=== PATIENT | female | born 1965 ===

== ENCOUNTER → 2017-04-20 | Outpatient (CLI) | payer BC | END | disposition home or self-care (01) | LOC: C.PATHSPEC 11:06 | PROVIDERS: ATTEND Dentist Endodontics | DX: K08.9 Disorder of teeth and supporting structures, unspecified (principal) ==

== ENCOUNTER 2019-01-13 03:51 | Inpatient (IN) ==
[2019-01-13] MEDS ORDERED: ONDANSETRON INJ 2 MG/ML 2 ML VIAL IV STA (04:13)
[2019-01-13] MEDS ORDERED: VANCOMYCIN HCL 2,250 MG in SODIUM CHLORIDE 0.9% 500 ML IV ONE (04:13)
[2019-01-13] MEDS ORDERED: cefTRIAXone SODIUM 2,000 MG in DEXTROSE 5% 50 ML IV STA (04:13)
[2019-01-13] MEDS ORDERED: VANCOMYCIN CONSULT ACTIVE PRN ×2 (04:13→06:10)
[2019-01-13] MEDS ORDERED: SODIUM CHLORIDE 0.9% 1000ML 1,000 ML IV SCH (04:15)
[2019-01-13] MEDS: MoRPHine SULFATE 4 MG/ML 1 ML CARP\\VIAL IV PRN ×2 (04:31→21:50)
[2019-01-13 04:32] LABS: Basophils # (auto) 0.04 K/uL (0-0.2); Basophils % (auto) 0.3 %; Eosinophils # (auto) 0.36 K/uL (0-0.5); Eosinophils % (auto) 2.4 %; Hematocrit (blood only) 39.6 % (37-47); Hemoglobin 13.2 g/dL (12.0-16.0); Immature Granulocytes # (auto) 0.03 K/uL (0.00-0.02); Immature Granulocytes % (auto) 0.2 %; Lymphocytes # (auto) 2.25 K/uL (1.2-3.4); Mean Corpuscular Hgb Conc 33.3 g/dL (32-36); Mean Corpuscular Volume 87.8 fL (80-100); Mean Platelet Volume 10.1 fL (7.4-10.4); Monocytes # (auto) 0.98 K/uL (0.11-0.59); Monocytes % (auto) 6.5 %; Neutrophils # (auto) 11.37 K/uL (1.4-6.5); Neutrophils % (auto) 75.6 %; Platelet Count 222 K/uL (130-400); RDW Standard Deviation 41.7 fL (36.4-46.3); Red Blood Count 4.51 M/uL (4.2-5.4); White Blood Count 15.03 K/uL (4.8-10.8)
[2019-01-13 04:50] LABS: Albumin Level 3.3 gm/dl (3.4-5.0); BUN Creatinine Ratio 21.3 (10-20); Calcium 8.6 mg/dl (8.5-10.1); Creatinine Clr Calc Pharmacy 109.1 ml/min; Est GFR (African American) 106.2; Est GFR (Non-African American) 91.6; Potassium 3.5 mmol/L (3.5-5.1)
[2019-01-13 04:52] LABS: Albumin Globulin Ratio 0.9 (0.9-2); Bilirubin,Total 0.4 mg/dl (0.2-1); Globulin 3.7 gm/dl (2.5-4.0)
--- NOTE | 2019-01-13 05:17 | History & Physical Report ---
Date of Service 53-year-old female with a past medical history of obesity with a BMI of 38 presents the emergency room after failed outpatient treatment for a labial abscess that was I&D in the ER. She was here on the and had an I&D done in the emergency room. Today she comes back for a wound check in her right labial area is roll slicing machine tender with erythema in the left medial thigh. She was also found to have a white count of 15,000, she was started on vancomycin and Rocephin in the emergency room. Past medical historyobesity Past surgical historynone Family historynoncontributory Social historydenies tobacco drugs or alcohol January 13, 2019 Assessment & Plan (1) Abscess of right genital labia: (2) Cellulitis of labia: (3) Leukocytosis: I have consulted BUILDING MAINTENANCE TECHNICIAN for evaluation and possible I&D of the abscess. She said when she was I&D in the emergency room on Thursday that not much pus was expressed out of the boil, the ER doctor commented that he thought there would been a lot more pus was expressed. In concert with the emergency room I have resumed Rocephin and vancomycin and also will get input from infectious disease. She will be under observation status likely to be here less than 2 minutes likely be discharged later today. ROS-No Headache, No Visual Changes, No Nausea, No Vomiting, No Fever, No Chills, No Neck Pain or Stiffness, No Chest Pain, No Palpitations, No SOB, No PERALTA, No Cough, No Sputum, No Wheezing, No Abdominal Pain, No Diarrhea, No Hematemesis, No Hemoptysis, No Unexpected Weight Loss, No Flank pain, No Melena, No Hematochezia, No Frequency, No Urgency, No Burning, No Hematuria, No Rashes, No Diaphoresis. Appetite is Normal, Tender R Labia Physical Exam Gen-AAO x 3, NAD, Afebrile, Obese Head-NCAT, EOMI, PERRLA, Anicteric Sclera, No Posterior Pharyngeal Erythema Neck-Supple, No JVD, No Thyromegaly, No Masses, No LAD, No Bruits Lungs-Clear to Auscultation Bilaterally, No Rales, No Rhonchi, No Wheezing, No Crepitus Chest-No S4, +S1, +S2, No S3, No Murmurs, No Rubs, No Gallops, No Ectopy Abdomen-Soft, Bowel Sounds Present, Non Tender, Non Distended, No Hepatomegaly, No Splenomegaly, No Palpable Masses, No Rebound, No Rigidity, No Guarding Musculoskeletal-Full Range of Motion Bilaterally, No CVAT Extremities-No Cyanosis, No Clubbing, No Edema Nuero-Cranial Nerves II-XII grossly intact, Motor WNL, DTRs WNL, Strength WNL, Non Focal Psych-Normal Mood -Tender red R Labial area, Erythema R Medial Thigh, edema and induration of the right labia majora extending up onto the mons pubis History of Present Illness Primary Care Provider: Bay Alvarado MD Allergies Allergy/AdvReac Type Severity Reaction Status Date / Time Sulfa (Sulfonamide Allergy Intermediate Unknown Verified 01/13/19 03:57 Antibiotics) Home Medications Home Medications Medication Instructions Recorded Confirmed Type cephalexin [Keflex] 500 mg PO QID 7 Days #28 cap 01/11/19 01/13/19 Rx oxycodone 5 mg PO Q4H PRN #15 tab 01/11/19 01/13/19 Rx Past Med/Surg History Medical History Depression Seasonal allergies Social History Preferred Language: Kazakh marital status: Unknown current occupational status: employed Feels Safe at Home: Yes Smoking Status: Never smoker Results & Data Vital Signs (Past 12 Hours) Vital Signs Temp Pulse Resp BP Pulse Ox 01/13/19 03:53 36.7 C 64 18 132/72 98 Allergies Sulfa (Sulfonamide Antibiotics) Allergy (Intermediate, Verified 01/13/19 03:57) Unknown Height/Weight/Isolation Height 5 ft 6 in Weight 107.9 kg Chemistry 01/13/19 04:23 Sodium 137 Potassium 3.5 Chloride 106 Carbon Dioxide 26 Anion Gap 5.0 BUN 16 Creatinine 0.75 Glucose 97 Microbiology 01/13/19 04:27 Blood Aerobic Blood Culture - Pending 01/13/19 04:27 Blood Anaerobic Blood Culture - Pending 01/13/19 04:23 Blood Aerobic Blood Culture - Pending 01/13/19 04:23 Blood Anaerobic Blood Culture - Pending
[2019-01-13] MEDS ORDERED: ACETAMINOPHEN 325 MG TAB PO PRN (06:10)
[2019-01-13] MEDS ORDERED: POLYETHYLENE (MIRALAX) 17 GM PACK PO PRN (06:10)
--- NOTE | 2019-01-13 07:18 | Emergency Department Note ---
History of Present Illness General Chief complaint: Wound Recheck Stated complaint: wound check History of Present Illness Maximum Pain Intensity: 6 This is a 53-year-old female presenting to the emergency department for recheck of a right sided labial abscess. The patient was initially seen and evaluated in this ER approximately 2 days ago with this complaint. CT scan was performed at that visit and did not show evidence of Julius's gangrene, but was highly concerning for infection. The patient did have an elevated white blood cell count of about 16,000 on initial labs. Incision and drainage was performed in the ER with only minimal drainage. This was sent to culture, and preliminary reading does show positive staph infection with sensitivities pending. The patient was given IV Rocephin and transition to oral Keflex. She was asked to return to the ER in 2 days for a recheck, which is today. The patient states that she primarily slept all day yesterday. Her packing fell out this morning, and admittedly she still has continued right-sided labial pain. She states she has been taking her medication as prescribed. She rates her current pain a 6/10. Home Medications Home Medications Medication Instructions Recorded Confirmed Type cephalexin [Keflex] 500 mg PO QID 7 Days #28 cap 01/11/19 01/13/19 Rx oxycodone 5 mg PO Q4H PRN #15 tab 01/11/19 01/13/19 Rx Allergies Allergy/AdvReac Type Severity Reaction Status Date / Time Sulfa (Sulfonamide Allergy Intermediate Unknown Verified 01/13/19 03:57 Antibiotics) Past Med/Surg History Medical History Depression Seasonal allergies Social History Preferred Language: Italian Communication Ability: Effective Portable Trackman Required: No Beliefs That Will Affect Care: None marital status: Unknown Current Living Situation: Other Current Living Situation Comment: Ex- current occupational status: employed Other Information That Helps Us Care for You: No Feels Safe at Home: Yes Safety Concerns: Feels Safe At This Time Smoking Status: Never smoker Hx Alcohol Use: Yes Alcohol type: beer Hx Substance Use: No Review of Systems A total of 10 systems reviewed and were otherwise negative Physical Exam Vital Signs Vital Signs - 24 hr 01/13/19 03:53 Temperature 36.7 C Temperature Source Oral Sepsis Recent Fever Within 48 Hours Yes Sepsis New/Unexplained Change in Mental Status No Sepsis Action Taken by Nursing No Action Required Pulse Rate 64 Respiratory Rate 18 Blood Pressure 132/72 Blood Pressure Mean 92 Pulse Oximetry 98 Oxygen Delivery Method Room Air VITALS: Vitals are noted on the nurse's note and reviewed by myself. Vital signs stable. GENERAL: Well-developed, well-nourished, who is in moderate discomfort to her stated complaint. Patient is cooperative with the examination. HEAD: Normocephalic atraumatic. HEART: Regular rate and rhythm without murmurs gallops or rubs. LUNGS: Clear to auscultation bilaterally without wheezes, rales or rhonchi. No retractions or accessory muscle use. ABDOMEN: Positive normal bowel sounds x 4. Soft, nontender, without masses or organomegaly. No guarding or rebound tenderness. MUSCULOSKELETAL: No muscle atrophy, erythema, or edema noted. Full range of motion in all extremities. NEURO: Patient was alert and oriented to person place and time. CN II through XII grossly intact. SKIN: Exam was performed in the presence of female nursing allopathic doctor. The skin was with a large amount of erythema and edema along the right side labia to the mons. This is consistent with cellulitis and does seem slightly worse than 2 days ago. Recently incised and drained area is with minimal drainage. No obvious abscess is noted on exam. No crepitus. Course Administered Medications Acetaminophen (Tylenol) 650 mg PO Q4H PRN PRN Reason: pain/fever Stop: 02/12/19 06:09 Last Admin: 01/13/19 16:10 Dose: 650 mg Documented by: [id number] Cetirizine HCl (Zyrtec) 10 mg PO QAM [facility] Stop: 02/12/19 16:14 Last Admin: 01/13/19 17:15 Dose: 10 mg Documented by: [id number] Fluoxetine HCl (Prozac) 40 mg PO QAM [facility] Stop: 02/12/19 16:14 Last Admin: 01/13/19 17:14 Dose: 40 mg Documented by: [id number] Fluticasone Propionate (Flonase) 2 sprays NA DAILY [facility] Stop: 02/12/19 16:14 Last Admin: 01/13/19 17:14 Dose: 2 sprays Documented by: [id number] Gabapentin (Neurontin) 300 mg PO HS [facility] Stop: 02/12/19 20:59 Last Admin: 01/13/19 20:24 Dose: 300 mg Documented by: [id number] Heparin Sodium (Porcine) (Heparin Sodium (Porcine)) 5,000 units SQ Q8 [facility] Stop: 02/12/19 13:59 Last Admin: 01/13/19 21:43 Dose: 5,000 units Documented by: [id number] Cosigned by: [id number] Admin: 01/13/19 14:10 Dose: 5,000 units Documented by: [id number] Cosigned by: [id number] Vancomycin HCl 1,500 mg/ (Sodium Chloride) 530 mls @ 200 mls/hr IV Q12H [facility]; Protocol Stop: 01/23/19 13:59 Last Admin: 01/14/19 02:16 Dose: 200 mls/hr Documented by: [id number] Infusion: 01/13/19 17:18 Dose: 0 mls/hr Documented by: [id number] Admin: 01/13/19 14:13 Dose: 200 mls/hr Documented by: [id number] Morphine Sulfate (Morphine Sulfate) 4 mg IV Q1H PRN PRN Reason: Pain Stop: 01/27/19 04:12 Last Admin: 01/13/19 21:50 Dose: 4 mg Documented by: [id number] Admin: 01/13/19 04:31 Dose: 4 mg Documented by: [id number] Oxybutynin Chloride (Ditropan Xl) 5 mg PO QAM [facility] Stop: 02/12/19 16:14 Last Admin: 01/13/19 17:14 Dose: 5 mg Documented by: [id number] Oxycodone HCl (Roxicodone Immediate Rel) 5 mg PO Q4H PRN PRN Reason: pain Stop: 01/27/19 06:09 Last Admin: 01/13/19 20:23 Dose: 5 mg Documented by: [id number] Admin: 01/13/19 14:09 Dose: 5 mg Documented by: [id number] Ranitidine HCl (Zantac) 150 mg PO BID [facility] Stop: 02/12/19 20:59 Last Admin: 01/13/19 20:24 Dose: 150 mg Documented by: [id number] Discontinued Medications Ceftriaxone Sodium 2,000 mg/ (Dextrose) 70 mls @ 100 mls/hr IV NOW STA Stop: 01/13/19 04:54 Last Infusion: 01/13/19 05:34 Dose: 0 mls/hr Documented by: [id number] Admin: 01/13/19 04:49 Dose: 100 mls/hr Documented by: [id number] Sodium Chloride (Nss 1000ml) 1,000 mls @ 999 mls/hr IV .Q1H1M [facility] Stop: 01/13/19 05:15 Last Infusion: 01/13/19 05:33 Dose: 0 mls/hr Documented by: [id number] Admin: 01/13/19 04:31 Dose: 999 mls/hr Documented by: [id number] Vancomycin HCl 2,250 mg/ (Sodium Chloride) 545 mls @ 200 mls/hr IV NOW ONE; Protocol Stop: 01/13/19 06:56 Last Infusion: 01/13/19 09:18 Dose: 0 mls/hr Documented by: [id number] Admin: 01/13/19 05:25 Dose: 200 mls/hr Documented by: [id number] Lidocaine HCl (Xylocaine 1% (Local)) Confirm Administered Dose 20 ml .ROUTE .STK-MED ONE Stop: 01/13/19 09:00 Last Admin: 01/13/19 15:39 Dose: Not Given Documented by: [id number] Ondansetron HCl (Zofran) 4 mg IV NOW STA Stop: 01/13/19 04:14 Last Admin: 01/13/19 04:31 Dose: 4 mg Documented by: [id number] Medical Decision Making Differential Diagnosis Differential diagnosis includes: Etiologies such as cellulitis, abscess, osteomyelitis, MRSA infection, DVT, necrotizing fasciitis, dermatitis, drug eruption, as well as others were entertained Laboratory Data Result diagrams: 01/13/19 04:23 01/13/19 04:23 Lab Results 01/13/19 01/13/19 01/13/19 Range/Units 04:23 04:23 04:23 WBC 15.03 H (4.8-10.8) K/uL RBC 4.51 (4.2-5.4) M/uL Hgb 13.2 (12.0-16.0) g/dL Hct 39.6 (37-47) % MCV 87.8 (80-100) fL MCH 29.3 (25-34) pg MCHC 33.3 (32-36) g/dL RDW Std Deviation 41.7 (36.4-46.3) fL RDW Coeff of Christopher 13.0 (11.5-14.5) % Plt Count 222 (130-400) K/uL MPV 10.1 (7.4-10.4) fL Immature Gran % (Auto) 0.2 % Neut % (Auto) 75.6 % Lymph % (Auto) 15.0 % [place] % (Auto) 6.5 % Eos % (Auto) 2.4 % Baso % (Auto) 0.3 % Immature Gran # (Auto) 0.03 H (0.00-0.02) K/uL Neut # (Auto) 11.37 H (1.4-6.5) K/uL Lymph # (Auto) 2.25 (1.2-3.4) K/uL [place] # (Auto) 0.98 H (0.11-0.59) K/uL Eos # (Auto) 0.36 (0-0.5) K/uL Baso # (Auto) 0.04 (0-0.2) K/uL Sodium 137 (136-145) mmol/L Potassium 3.5 (3.5-5.1) mmol/L Chloride 106 (98-107) mmol/L Carbon Dioxide 26 (21-32) mmol/L Anion Gap 5.0 (3-11) BUN 16 (7-18) mg/dl Creatinine 0.75 (0.6-1.2) mg/dl Est Cr Clr Drug Dosing 109.1 ml/min Est GFR ( Amer) 106.2 Est GFR (Non-Af Amer) 91.6 BUN/Creatinine Ratio 21.3 H (10-20) Glucose 97 (70-99) mg/dl Lactate 0.7 (0.4-2.0) mmol/L Calcium 8.6 (8.5-10.1) mg/dl Total Bilirubin 0.4 (0.2-1) mg/dl AST 7 L (15-37) U/L ALT 16 (12-78) U/L Alkaline Phosphatase 69 (45-117) U/L Total Protein 7.0 (6.4-8.2) gm/dl Albumin 3.3 L (3.4-5.0) gm/dl Globulin 3.7 (2.5-4.0) gm/dl Albumin/Globulin Ratio 0.9 (0.9-2) MDM Narrative Physical exam and history were performed. Nursing notes, EMR, and Medication List were personally reviewed. Patient appears to have a persistent right-sided labial cellulitis. The patient was initially seen in this facility with this complaint, and at her visit 2 days ago I did inspect the area with Boubacar Ortiz PA-C, knowing that the patient would be returning today for a wound recheck. In comparing her symptoms from that visit to today, she seems much more uncomfortable and the edema seems to be spreading more in the mons. I did review her cultures, which at this time are preliminarily showing a staph infection. Clinically there is concern for MRSA. IV access was established and labs were obtained. Blood cultures were gathered. The patient was given IV Rocephin and IV vancomycin. She was also medicated with IV morphine and IV Zofran. The patient's blood work is as above and was reviewed. She continues to have an elevated white blood cell count of 15,000. She does have an associated shift. No anemia or significant bandemia. Lactic is negative. Transaminases are not diagnostic. On reevaluation the patient did feel somewhat better from a pain standpoint with morphine. She overall does not seem well for discharge home. She has this persistent infection, that does not appear to be improving with outpatient antibiotics. I clinically do not appreciate evidence of Julius's, and CT 2 days ago was without air. The case was discussed with the on-call hospitalist, who agreed to evaluate the patient here in the ER. Please see the hospitalist dictation for further patient course, plan, and disposition. The chart was completed utilizing [employer] Speech Voice Recognition Software. Grammatical errors, random word insertions, pronoun errors, and incomplete sentences are an occasional consequence of this system due to software limitations, ambient noise, and hardware issues. Any formal questions or concerns about the content, text, or information contained within the body of this dictation should be directly addressed to the provider for clarification. . Impression & Plan Cellulitis of labia Discharge Plan Visit Data *Final* Discharge Date/Time: 01/13/19 05:52 Chief Complaint: Wound Recheck Stated Complaint: wound check ED Provider: Kentrell Gonzales ED Midlevel Provider: Damian Gillespie Discharge Problem: Cellulitis of labia Patient Disposition: Admitted As Inpatient Discharge Instructions Interventions: ED Discharge Assessment Last Done: 01/13/19 05:52
[2019-01-13 08:07] LABS: Prothrombin Time 9.9 Seconds (9.0-12.0)
[2019-01-13] MEDS ORDERED: LIDOCAINE HCL 1% 20 ML VIAL ONE (08:59)
--- NOTE | 2019-01-13 09:12 | Pharmacy Report ---
Pharmacy Abx Initial Consult - Date of Service January 13, 2019 - Pharmacy Dosing Scope Date of Consult: 01/13 Consultation requested by: Dr. Tamez Pharmacy is consulted to initiate vanocmyin IV/PO dosing therapy, order appropriate labs and adjust drug dose/frequency. - Subjective The patient is a 53 year old F admitted on 01/13/19 05:15. - Objective Height: 5 ft 6 in Weight: 102.6 kg Vital Signs (Past 12hrs): Vital Signs Temp Pulse Pulse Resp BP BP Pulse Ox 01/13/19 07:00 37.1 C 60 17 102/67 97 01/13/19 05:52 60 18 128/71 98 01/13/19 05:44 36.7 C 63 18 152/77 H 95 01/13/19 03:53 36.7 C 64 18 132/72 98 Lab Results (24hrs): Laboratory Tests (24 Hours) 01/13/19 01/13/19 04:23 04:23 WBC 15.03 H Neut # (Auto) 11.37 H Creatinine 0.75 Est Cr Clr Drug Dosing 109.1 Micro Results: 01/13/19 04:27 Aerobic Blood Culture - Pending Blood Anaerobic Blood Culture - Pending 01/13/19 04:23 Aerobic Blood Culture - Pending Blood Anaerobic Blood Culture - Pending - Risk Factors for Resistance * Antimicrobial use within the last 90 days - Assessment & Plan Assessment 53 year old F admitted observation following I&D in [place] failing outpatient therapy for labial abscess/cellulitis. Plan vancomycin for treatment of labial abscess/cellulitis Vancomycin IV * Estimated PK Parameters: Vdf 0.6 Jonathon 0.08 hr-1, t1/2 8 hr * Loading dose: 2250 mg (22 mg/kg) * Maintenance dose: 1250 mg IV (12 mg/kg) every 12 hours * Goal trough level for cellulitis/ssti: 10-15 mcg/mL * Trough level currently not ordered as patient is observation following I&D in [place], will order tomorrow if vancomycin continued * A less than traditional dose and/or extended dosing interval has/have been selected due to likelihood of drug accumulation in obese patient Pharmacy will continue to follow and will adjust dose/frequency as necessary. Thank you.
--- NOTE | 2019-01-13 10:03 | Infectious Disease Consult ---
Date of Consultation January 13, 2019 Assessment & Plan (1) Abscess of right genital labia: pt will continue on vanco for now awaiting data power consultant eval and decision regarding I&D. Upon d/c from hospital wound suggest Zyvox 6oo mg po bid x 14 days. She can follow with ID post d/c to further discuss decolonization as I suspect her previous "cysts" may be related to MRSA infection. She is instructed not to shave area as this is likely her portal of entry. If co-pay for zyvox too high alternative agent would be clinda 300mg po tid x 14 days. History of Present Illness Attending Physician: Chadd Calix MD pt initially presented to ER on 01/11 with right labial pain, swelling, erythema. she underwent I&D and was d/c home on Keflex, tolerated well. no clinical improvement, returned to ER yesterday with worsening cellulitis, wbc 16, ct pelvis done showing inflammation but no abscess or gas, admitted to hosptial and placed on vanco and ctx. tolerating well. data power consultant consulted for ? need for additional I&D. Cultures from ER on 01/11, now growing CA-MRSA, resistant to doxy. She has allergy to bactrim. States she is still having pain, no dysuria. She does shave her pubic area and has had multiple "cysts" requring drainage in the pelvic/buttock area in the past, she does not believe she has had ever had a culture and states she has not been diagnosed with MRSA abscess in the past. She denies f/c. no abd pain, no n/v/d, was tolerating abx well. no cp, sob, cough, perez. Allergies Allergy/AdvReac Type Severity Reaction Status Date / Time Sulfa (Sulfonamide Allergy Intermediate Unknown Verified 01/13/19 03:57 Antibiotics) Home Medications Home Medications Medication Instructions Recorded Confirmed Type cephalexin [Keflex] 500 mg PO QID 7 Days #28 cap 01/11/19 01/13/19 Rx oxycodone 5 mg PO Q4H PRN #15 tab 01/11/19 01/13/19 Rx Patient History Medical History Depression Seasonal allergies Social History (Reviewed 01/13/19 @ 10:00 by JAMILA Padilla Preferred Language: Romanian Communication Ability: Effective Newspaper Publisher Required: No Beliefs That Will Affect Care: None marital status: Unknown Current Living Situation: Other Current Living Situation Comment: Ex- current occupational status: employed Other Information That Helps Us Care for You: No Feels Safe at Home: Yes Safety Concerns: Feels Safe At This Time Smoking Status: Never smoker Hx Alcohol Use: Yes Alcohol type: beer Hx Substance Use: No Review of Systems Review of Systems: All systems reviewed & are unremarkable except as noted in HPI & below Physical Exam Constitutional: WD/WN, vitals as above Eyes: PERRL, conjunctivae normal, anicteric sclerae ENMT: external ear and nose normal, oropharynx normal Neck: normal visual inspection Respiratory: normal respiratory effort, lungs clear to auscultation Cardiovascular: RRR, no murmur, no edema Gastrointestinal (Abdomen): normal bowel sounds, soft, nontender, no hepatosplenomegaly Musculoskeletal: no cyanosis or clubbing, extremities motor strength 5/5 Skin: no rashes, warm and dry groin exam reveals significant swelling, erythema, warmth and tenderness of right labial area. no purulent drainage noted, tender to light palpation. Psychiatric: A+Ox3, euthymic affect Results & Data Vital Signs (Past 12 Hours) Vital Signs Temp Pulse Pulse Resp BP BP Pulse Ox 01/13/19 07:00 37.1 C 60 17 102/67 97 01/13/19 05:52 60 18 128/71 98 01/13/19 05:44 36.7 C 63 18 152/77 H 95 01/13/19 03:53 36.7 C 64 18 132/72 98
--- NOTE | 2019-01-13 10:05 | CT Scan Report ---
CT pelvis wo con CLINICAL HISTORY: 53 years-old Female presenting with Eval for labial, vulvar abscess. TECHNIQUE: Multidetector CT of the pelvis was performed without the use of intravenous contrast. IV c ontrast: None. One or more dose lowering techniques were used consistent with the principles of ALARA (as low as reasonably achievable), including automatic exposure control, mA or kV adjustment to amanda vidual patient size, and/or use of iterative reconstruction. COMPARISON: 01/11/2019. CT DOSE (mGy.cm): The estimated cumulative dose is 1045.41. FINDINGS: Airline Managerial Supervisor topogram: Unremarkable. Bladder: Trace circumferential bladder wall thickening. Pelvic organs: Normal noncontrast appearance. The right labia again demonstrates diffuse infiltration of the subcutaneous fat with associated skin thickening. Inflammatory change extends to the periclit oral region and mons. There is an overall similar degree of the extent of inflammatory change, which also tracks along the distal portions of the inguinal canals, right greater than left. No evidence of a rim-enhancing fluid collection to suggest abscess. No soft tissue emphysema. No involvement of jeni rounding musculature. Bowel: Normal appendix. No bowel obstruction. Peritoneal cavity: Trace free fluid in the pelvis, likely physiologic no free intraperitoneal gas.. Lymph nodes: Several prominent inguinal lymph nodes, right greater than left, likely reactive. Vasculature: Normal noncontrast appearance. Abdominal wall: Normal. Musculoskeletal: Normal. IMPRESSION: No significant change in the extent or severity of inflammatory change centered at the right labia an d extending into the periclitoral, mons, and right inguinal regions. No evidence of abscess. No soft tissue emphysema to suggest a gangrenous infection. Electronically signed by: Ruddy Juarez M.D. 01/13/2019 10:04 AM
--- NOTE | 2019-01-13 13:49 | Consultation Report ---
DATE OF CONSULTATION: 01/13/2019 HISTORY OF PRESENT ILLNESS: Jo Ann is a 53-year-old who presented to the ED for progressively worsening vulvar cellulitis with possible abscess. The patient was initially seen on 01/11/2019 for the vulvar infection and underwent a CT scan at that time and ultimately was noted to have a cellulitis with a possible small fluid collection that was I and D'd for the minimal drainage per patient report. The ED note also was consistent with rather minimal drainage which would also be consistent with the finding on prior CT scan. The patient reports that she was discharged home with Keflex, which she reports she was taking as prescribed. The patient reports that the infection has progressively worsened and has started to affect a larger area that has become more swollen and edematous since she was seen in the ED on the . She reports the pain is also somewhat increased. The patient is currently on IV antibiotics started by the medicine team and has had ID consulted to further discuss antibiotic options. On initial visit with the patient, an exam was performed and it was unclear if there was a distinct drainable fluid collection versus tissue edema secondary to the cellulitis and vulvar infection. I discussed with the patient undergoing a CT scan to evaluate whether there was a drainable fluid collection present which would benefit from an incision and drainage. The patient was amiable to this plan and the patient did ultimately undergo the CT scan which did not show any drainable fluid collection and this was further discussed with the patient on a subsequent visit. PAST MEDICAL HISTORY: 1. Depression. 2. Seasonal allergies. PAST SURGICAL HISTORY: Noncontributory to current evaluation. SOCIAL HISTORY: The patient denies tobacco or illicit drug use. FAMILY HISTORY: Noncontributory to current evaluation. REVIEW OF SYSTEMS: Unremarkable except as noted per HPI. PHYSICAL EXAMINATION: GENERAL APPEARANCE: The patient was alert and oriented x3 in no acute distress. ABDOMEN: Soft, nontender, nondistended, no hepatosplenomegaly, no rebound or guarding. GENITOURINARY: There was noted to be vulvar cellulitis extending throughout the majority of the right vulva and mons extending including both the labia majora and minora extending into the medial thigh, extending upwards to the mons pubis just inferior to the abdominal fold. Around the mons pubis, it did appear to extend slightly past the midline. The labia and mons were tender, firm induration and edema, although there was no distinctly notable fluctuant masses. There was noted to be extensive erythema covering all areas noted to be affected. ASSESSMENT AND PLAN: 1. Vulvar cellulitis with possible abscess. The CT and exam findings were discussed with Jo Ann today. I discussed the recommendation to reevaluate for a drainable mass with CT scan as a distinct drainable mass was not identified on exam. The patient was amiable to this and a CT scan was performed for which there was noted to be no drainable mass or abscess present. I further discussed the repeat imaging findings with Jo Ann, including the finding that there was no drainable mass present, drainable fluid collection present. I discussed that if a fluid collection does become apparent, this could be I&D in the future, although being that she is on broad-spectrum IV antibiotics, but this is unlikely to occur. The patient is currently being evaluated and cared for by infectious disease and internal medicine and will defer decisions on antibiotic choice to primary and consulted service. If there is any further assistance that we can provide for this patient, please do not hesitate to let us know. I discussed with the patient if she had any additional questions from INFORMATION SYSTEMS ADMINISTRATOR, that we would be happy to discuss this with her at anytime in the future. Again, if there is anyway we can assist with the care of Jo Ann, please do not hesitate to let us know, we will wait to hear from you for any further needs as they occur. CÉSAR
[2019-01-13] MEDS ORDERED: VANCOMYCIN HCL 1,250 MG in SODIUM CHLORIDE 0.9% 250 ML IV SCH (14:00)
[2019-01-13] MEDS: OXYCODONE HCL IR 5 MG TAB (IMMEDIATE RELEASE) PO PRN ×2 (14:09→20:23)
[2019-01-13] MEDS: HEPARIN SOD 5,000 UNIT/0.5 ML VIAL SQ SCH ×2 (14:10→21:43)
[2019-01-13] MEDS: VANCOMYCIN HCL 1,500 MG in SODIUM CHLORIDE 0.9% 500 ML IV SCH (14:13)
[2019-01-13] MEDS ORDERED: ALBUTEROL HFA 8 GM INHALER INH PRN (16:15)
[2019-01-13] MEDS: FLUTICASONE PROPIONATE NA SPR 16 GM BTL SCH (17:14)
[2019-01-13] MEDS: FLUOXETINE HCL 20 MG CAP PO SCH (17:14)
[2019-01-13] MEDS: OXYBUTYNIN CHLORIDE XL 5 MG TABCR PO SCH (17:14)
[2019-01-13] MEDS: CETIRIZINE HCL 10 MG TABLET PO SCH (17:15)
--- NOTE | 2019-01-13 19:24 | Hospitalist Progress Note ---
Date of Service January 13, 2019 Assessment & Plan (1) Cellulitis of labia: T-max 37.7, leukocytosis improved to 15,000 Wound cultures dated January 11, 2019: Positive for staph aureus, MRSA Blood cultures collected January 13, 2019: Pending Repeat CAT scan of the pelvis: No abscess noted DOCTOR ASSISTANT service and infectious disease service consulted No drainable abscess at this time Continue vancomycin IV Monitor response to IV antibiotics Plan to transition to Zyvox versus clindamycin upon discharge DVT prophylaxis Heparin subcutaneous every 8 hours Anticipate discharge to home when medically stable, on oral antibiotics plan discussed at length and in detail with patient she is understanding, agreeable and comfortable with the plan of care Subjective Follow-up for vulvar cellulitis Seen with DAVID Sandoval at the bedside throughout whole encounter Patient seen resting in bed, comfortable, not in distress Does report persistent pain on the affected area, notes increased drainage from the area Denies fevers or chills, abdominal pain, nausea vomiting No chest pain, shortness of breath, dizziness No other symptoms today Review of Systems Review of Systems: All systems reviewed & are unremarkable except as noted in HPI & below Physical Exam Physical Exam: General- oriented x 3, not in distress, speaks in sentences with no effort or accessory muscle use Head- atraumatic Eyes- PERRL, EOMI, anicteric ENT- oropharynx clear Neck- supple, no JVD, no adenopathy, no thyromegaly; carotids +2/2, no bruits appreciated Lungs- clear to auscultation bilaterally, no rales/wheezes Heart- normal rate, regular rhythm; no murmur, no gallop, no rub appreciated Abdomen- normal bowel sounds, nondistended, soft, nontender, no masses or hepatosplenomegaly Extremities- no pretibial edema, no calf tenderness; peripheral pulses intact Genitalia- (+) significant edema of the right labia, mons pubis region, no active drainage or bleeding noted No erythema or edema on the inguinal regions Neuro- alert, oriented x 3; CN 2-12 grossly intact; motor 5/5 bilaterally;sensation 100% on all extremities; no other gross focal neurologic deficits Skin- warm & dry Results & Data Vital Signs (Past 12 Hours) Vital Signs Temp Pulse Resp BP Pulse Ox 01/13/19 16:42 37.5 C 01/13/19 15:30 37.7 C H 74 18 135/79 95 Laboratory Results Laboratory Results - last 24 hr 01/13/19 01/13/19 01/13/19 04:23 04:23 04:23 WBC 15.03 H RBC 4.51 Hgb 13.2 Hct 39.6 MCV 87.8 MCH 29.3 MCHC 33.3 RDW Std Deviation 41.7 RDW Coeff of Christopher 13.0 Plt Count 222 MPV 10.1 Immature Gran % (Auto) 0.2 Neut % (Auto) 75.6 Lymph % (Auto) 15.0 Gosper % (Auto) 6.5 Eos % (Auto) 2.4 Baso % (Auto) 0.3 Immature Gran # (Auto) 0.03 H Neut # (Auto) 11.37 H Lymph # (Auto) 2.25 Gosper # (Auto) 0.98 H Eos # (Auto) 0.36 Baso # (Auto) 0.04 PT INR Sodium 137 Potassium 3.5 Chloride 106 Carbon Dioxide 26 Anion Gap 5.0 BUN 16 Creatinine 0.75 Est Cr Clr Drug Dosing 109.1 Est GFR ( Amer) 106.2 Est GFR (Non-Af Amer) 91.6 BUN/Creatinine Ratio 21.3 H Glucose 97 Lactate 0.7 Calcium 8.6 Total Bilirubin 0.4 AST 7 L ALT 16 Alkaline Phosphatase 69 Total Protein 7.0 Albumin 3.3 L Globulin 3.7 Albumin/Globulin Ratio 0.9 01/13/19 07:42 WBC RBC Hgb Hct MCV MCH MCHC RDW Std Deviation RDW Coeff of Christopher Plt Count MPV Immature Gran % (Auto) Neut % (Auto) Lymph % (Auto) Gosper % (Auto) Eos % (Auto) Baso % (Auto) Immature Gran # (Auto) Neut # (Auto) Lymph # (Auto) Gosper # (Auto) Eos # (Auto) Baso # (Auto) PT 9.9 INR 1.0 Sodium Potassium Chloride Carbon Dioxide Anion Gap BUN Creatinine Est Cr Clr Drug Dosing Est GFR ( Amer) Est GFR (Non-Af Amer) BUN/Creatinine Ratio Glucose Lactate Calcium Total Bilirubin AST ALT Alkaline Phosphatase Total Protein Albumin Globulin Albumin/Globulin Ratio
[2019-01-13] MEDS: GABAPENTIN 300 MG CAP PO SCH (20:24)
[2019-01-14] MEDS: VANCOMYCIN HCL 1,500 MG in SODIUM CHLORIDE 0.9% 500 ML IV SCH ×2 (02:16→14:00)
[2019-01-14] MEDS ORDERED: cefTRIAXone SODIUM 2,000 MG in DEXTROSE 5% 50 ML IV SCH (04:00)
[2019-01-14] MEDS: HEPARIN SOD 5,000 UNIT/0.5 ML VIAL SQ SCH ×3 (06:19→22:24)
[2019-01-14] MEDS: OXYCODONE HCL IR 5 MG TAB (IMMEDIATE RELEASE) PO PRN ×3 (07:36→20:26)
[2019-01-14] MEDS: CETIRIZINE HCL 10 MG TABLET PO SCH (07:39)
[2019-01-14] MEDS: OXYBUTYNIN CHLORIDE XL 5 MG TABCR PO SCH (07:40)
[2019-01-14] MEDS: FLUOXETINE HCL 20 MG CAP PO SCH (07:40)
[2019-01-14] MEDS: FLUTICASONE PROPIONATE NA SPR 16 GM BTL SCH (07:40)
[2019-01-14 10:26] LABS: Creatinine Clr Calc Pharmacy 79.6 ml/min; Est GFR (Non-African American) 64.7
--- NOTE | 2019-01-14 14:23 | Hospitalist Progress Note ---
Date of Service January 14, 2019 Assessment & Plan (1) Cellulitis of labia: afebrile overnight Wound cultures dated January 11, 2019: Positive for staph aureus, MRSA Blood cultures collected January 13, 2019: Pending Repeat CAT scan of the pelvis: No abscess noted RESERVATIONS CLERK service and infectious disease service consulted No drainable abscess at this time- discussed again with Angio Technologist SVC, appreciate the recommendations Continue vancomycin IV continue to monitor Plan to transition to Zyvox versus clindamycin upon discharge DVT prophylaxis Heparin subcutaneous every 8 hours Anticipate discharge to home when medically stable, on oral antibiotics plan discussed in detail with patient she is understanding, agreeable and comfortable with the plan of care Subjective ff up for vulvar cellulitis seen resting in bed, not in distress pain over affected area decreased today noticed by staff to have more yellow drainage from previous I&D site no chills no urinary symptoms denies other symptoms Review of Systems Review of Systems: All systems reviewed & are unremarkable except as noted in HPI & below Physical Exam Physical Exam: General- oriented x 2, not in distress, speaks in sentences with no effort or accessory muscle use Eyes- anicteric Neck- no JVD Lungs- clear BS BL Heart- normal rate, regular rhythm; no murmurs Abdomen- normal bowel sounds, nondistended, soft, nontender Extremities- no pretibial edema, no calf tenderness Genitalia- decreased edema/erythema/warmth/tenderness over mons pubis and right labia no active drainage noted Neuro- alert, oriented x 3; no gross focal neurologic deficits Skin- warm & dry Results & Data Vital Signs (Past 12 Hours) Vital Signs Temp Pulse Resp BP Pulse Ox 01/14/19 07:48 36.8 C 64 13 130/76 98
[2019-01-14] MEDS: SODIUM CHLORIDE 0.9% 1000ML 1,000 ML IV SCH (16:18)
--- NOTE | 2019-01-14 18:02 | Gynecologic Progress Note ---
Date of Service January 14, 2019 Assessment & Plan (1) Cellulitis of labia: CT reviewed. There is no abscess to drain. She is probably having exudate from the inflammed tissues of the labia. Could attempt sitz baths. Reassured patient and told physician who called me that there is not an area to I&D. This cellulitis is prolonged in duration and will take some time for the physical changes to revert to normal. Maybe several weeks. Continue antibiotics per ID. Call with changes. Subjective Called to see patient by primary team. they have noted increased d/c from the area where they tried to I&D. Patient notes she is feeling a little better. She notes that her pain is overall better controlled, but has it's moments. She notes it is less red and maybe a little less firm. Notes smaller. Physical Exam Constitutional: WD/WN, vitals as above Genitourinary: there is less erythema than noted by Dr. Hughes in his note a day ago. The area is firm but not fluctuant. Mild erythema of the right labia to the perineal body and up onto the right mons. Mobile. Able to access and place finger in vagina. The open area where the I&D was attempted looks clean, no eudate. Results & Data Vital Signs (Past 12 Hours) Vital Signs Temp Pulse Resp BP Pulse Ox 01/14/19 15:38 37.3 C 59 L 18 120/77 96 01/14/19 07:48 36.8 C 64 13 130/76 98
[2019-01-14] MEDS: GABAPENTIN 300 MG CAP PO SCH (20:27)
[2019-01-15] MEDS: VANCOMYCIN HCL 1,500 MG in SODIUM CHLORIDE 0.9% 500 ML IV SCH (01:47)
[2019-01-15] MEDS: OXYCODONE HCL IR 5 MG TAB (IMMEDIATE RELEASE) PO PRN ×3 (02:11→19:41)
[2019-01-15] MEDS: SODIUM CHLORIDE 0.9% 1000ML 1,000 ML IV SCH ×2 (06:30→19:41)
[2019-01-15] MEDS: HEPARIN SOD 5,000 UNIT/0.5 ML VIAL SQ SCH ×3 (06:30→21:05)
[2019-01-15 07:31] LABS: Creatinine Clr Calc Pharmacy 107.6 ml/min; Est GFR (Non-African American) 93.1
--- NOTE | 2019-01-15 08:46 | Pharmacy Report ---
Pharmacy Abx Dose Short Note - Date of Service January 15, 2019 - Assessment & Plan Assessment 53 year old F receiving vancomycin for treatment of labia cellulitis Day # 3 of antimicrobial therapy. Plan Vancomycin * Trough level came back subtherapeutic at ~10 mcg/ml (goal ~15 mcg/ml for cellulitis). Previous cultures 01/11 positive for MRSA * Now at steady state, level drawn appropriately - therefore will increase to 1750 mg iv q 12 hrs to target a higher trough level * Renal function remains stable, CrCl >100 ml/min * Per provider notes, no abscess to drain at this time. ID also following and recommend continuation of vancomycin. Upon d/c from hospital they recommend zyvox or clindamycin to cover MRSA * Will plan to obtain a trough prior to the 0200 vancomycin dose on 01/17 to ensure therapeutic Pharmacy will continue to follow and will adjust dose/frequency as necessary. Thank you.
[2019-01-15] MEDS: FLUTICASONE PROPIONATE NA SPR 16 GM BTL SCH (08:54)
[2019-01-15] MEDS: OXYBUTYNIN CHLORIDE XL 5 MG TABCR PO SCH (08:54)
[2019-01-15] MEDS: FLUOXETINE HCL 20 MG CAP PO SCH (08:54)
[2019-01-15] MEDS: CETIRIZINE HCL 10 MG TABLET PO SCH (08:54)
[2019-01-15] MEDS: VANCOMYCIN HCL 1,750 MG in SODIUM CHLORIDE 0.9% 500 ML IV SCH (14:16)
[2019-01-15] MEDS: GABAPENTIN 300 MG CAP PO SCH (21:04)
--- NOTE | 2019-01-15 22:57 | Hospitalist Progress Note ---
Date of Service January 15, 2019 Assessment & Plan (1) Cellulitis of labia: remains afebrile Wound cultures dated January 11, 2019: Positive for staph aureus, MRSA Blood cultures collected January 13, 2019: Pending Repeat CAT scan of the pelvis: No abscess noted DEHYDRATOR service and infectious disease service consulted No drainable abscess at this time- discussed again with Conformal Pad Former SVC, appreciate the recommendations improving daily but will still need IV Vanco for now Continue vancomycin IV continue to monitor Plan to transition to Zyvox versus clindamycin upon discharge DVT prophylaxis Heparin subcutaneous every 8 hours Anticipate discharge to home when medically stable, on oral antibiotics plan discussed in detail with patient she is understanding, agreeable and comfortable with the plan of care Subjective ff up for vulvar cellulitis seen resting in bed, DAVID Elder at bedside throughout whole encounter comfortable, not in distress states she feels improved further still has some pain on the affected area less drainage no other symptoms Review of Systems Review of Systems: All systems reviewed & are unremarkable except as noted in HPI & below Physical Exam Physical Exam: General- oriented x 3, not in distress, speaks in sentences with no effort or accessory muscle use Eyes- anicteric Neck- no JVD Lungs- clear breath sounds bilaterally Heart- normal rate, regular rhythm; no murmurs Abdomen- normal bowel sounds, nondistended, soft, nontender Genitalia- less erythema, edema, tenderness on the right labia, mons pubis no abscess draining, no bleeding Extremities- no pretibial edema, no calf tenderness Neuro- alert, oriented x 3; no gross focal neurologic deficits Skin- warm & dry Results & Data Vital Signs (Past 12 Hours) Vital Signs Temp Pulse Resp BP Pulse Ox 01/15/19 15:03 36.8 C 60 18 150/92 H 92
[2019-01-16] MEDS: VANCOMYCIN HCL 1,750 MG in SODIUM CHLORIDE 0.9% 500 ML IV SCH (02:36)
[2019-01-16] MEDS: HEPARIN SOD 5,000 UNIT/0.5 ML VIAL SQ SCH (05:52)
[2019-01-16 07:04] LABS: Creatinine Clr Calc Pharmacy 104.7 ml/min; Est GFR (African American) 104.5; Est GFR (Non-African American) 90.2
[2019-01-16] MEDS: FLUTICASONE PROPIONATE NA SPR 16 GM BTL SCH (07:28)
[2019-01-16] MEDS: CETIRIZINE HCL 10 MG TABLET PO SCH (07:28)
[2019-01-16] MEDS: FLUOXETINE HCL 20 MG CAP PO SCH (07:28)
[2019-01-16] MEDS: OXYBUTYNIN CHLORIDE XL 5 MG TABCR PO SCH (07:28)
[2019-01-16 13:44] LABS: Basophils # (auto) 0.04 K/uL (0-0.2); Basophils % (auto) 0.5 %; Eosinophils # (auto) 0.24 K/uL (0-0.5); Eosinophils % (auto) 3.3 %; Hematocrit (blood only) 40.9 % (37-47); Hemoglobin 13.9 g/dL (12.0-16.0); Immature Granulocytes # (auto) 0.03 K/uL (0.00-0.02); Immature Granulocytes % (auto) 0.4 %; Lymphocytes # (auto) 2.24 K/uL (1.2-3.4); Lymphocytes % (auto) 30.7 %; Mean Corpuscular Volume 88.5 fL (80-100); Mean Platelet Volume 9.9 fL (7.4-10.4); Monocytes # (auto) 0.35 K/uL (0.11-0.59); Monocytes % (auto) 4.8 %; Neutrophils # (auto) 4.39 K/uL (1.4-6.5); Neutrophils % (auto) 60.3 %; Platelet Count 324 K/uL (130-400); RDW Coefficient of Variation 12.7 % (11.5-14.5); RDW Standard Deviation 40.8 fL (36.4-46.3); Red Blood Count 4.62 M/uL (4.2-5.4); White Blood Count 7.29 K/uL (4.8-10.8)
[2019-01-16 14:07] LABS: BUN Creatinine Ratio 12.1 (10-20); Calcium 9.7 mg/dl (8.5-10.1); Creatinine Clr Calc Pharmacy 88.4 ml/min; Est GFR (African American) 85.2; Est GFR (Non-African American) 73.5; Potassium 3.7 mmol/L (3.5-5.1)
--- NOTE | 2019-01-16 18:44 | Hospitalist Progress Note ---
Date of Service January 16, 2019 Assessment & Plan (1) Cellulitis of labia: remains afebrile Wound cultures dated January 11, 2019: Positive for staph aureus, MRSA Blood cultures collected January 13, 2019: Pending Repeat CAT scan of the pelvis: Negative after 48 hours CAUSTIC LOADER service and infectious disease service consulted No drainable abscess at this time- discussed again with Canoe Inspector Final SVC, appreciate the recommendations Improved daily, vancomycin IV received x4 days Infectious disease service consulted, recommend clindamycin 300 mg 3 times daily x2 weeks Follow-up with PCP this week Will up with CAUSTIC LOADER service in 1 week Follow-up with ID in 2 weeks DVT prophylaxis Heparin subcutaneous every 8 hours Discharge to home plan discussed in detail with patient she is understanding, agreeable and comfortable with the plan of care Subjective Seen resting in bed, comfortable, not in distress Follow-up for labial cellulitis Seen with DAVID Munoz at the bedside throughout whole encounter Patient is in good spirits States she feels fine overall next, pain over the affected area much better Drainage today No fevers or chills Other symptoms States that she is ready and agreeable for discharge today Called to see patient by primary team. they have noted increased d/c from the area where they tried to I&D. Patient notes she is feeling a little better. She notes that her pain is overall better controlled, but has it's moments. She notes it is less red and maybe a little less firm. Notes smaller. Review of Systems Review of Systems: All systems reviewed & are unremarkable except as noted in HPI & below Physical Exam Physical Exam: General- oriented x 3, not in distress, speaks in sentences with no effort or accessory muscle use Eyes- anicteric Neck- no JVD Lungs- clear breath sounds bilaterally Heart- normal rate, regular rhythm; no murmurs Abdomen- normal bowel sounds, nondistended, soft, nontender Extremities- no pretibial edema, no calf tenderness Genitalia-very faint erythema over the right labia, mild edema, no drainage mons pubis essentially normal Neuro- alert, oriented x 3; no gross focal neurologic deficits Skin- warm & dry Results & Data Vital Signs (Past 12 Hours) Vital Signs Temp Pulse Pulse Resp BP Pulse Ox 01/16/19 14:12 36.8 C 63 60 16 134/64 96
--- NOTE | 2019-01-16 18:49 | Discharge Summary ---
Date of Service January 16, 2019 Admission HPI Per Admitting Provider 53-year-old female with a past medical history of obesity with a BMI of 38 presents the emergency room after failed outpatient treatment for a labial abscess that was I&D in the ER. She was here on the and had an I&D done in the emergency room. Today she comes back for a wound check in her right labial area is roving can tender with erythema in the left medial thigh. She was also found to have a white count of 15,000, she was started on vancomycin and Rocephin in the emergency room. Past medical historyobesity Past surgical historynone Family historynoncontributory Social historydenies tobacco drugs or alcohol Admission Exam Per Admitting Provider Gen-AAO x 3, NAD, Afebrile, Obese Head-NCAT, EOMI, PERRLA, Anicteric Sclera, No Posterior Pharyngeal Erythema Neck-Supple, No JVD, No Thyromegaly, No Masses, No LAD, No Bruits Lungs-Clear to Auscultation Bilaterally, No Rales, No Rhonchi, No Wheezing, No Crepitus Chest-No S4, +S1, +S2, No S3, No Murmurs, No Rubs, No Gallops, No Ectopy Abdomen-Soft, Bowel Sounds Present, Non Tender, Non Distended, No Hepatomegaly, No Splenomegaly, No Palpable Masses, No Rebound, No Rigidity, No Guarding Musculoskeletal-Full Range of Motion Bilaterally, No CVAT Extremities-No Cyanosis, No Clubbing, No Edema Nuero-Cranial Nerves II-XII grossly intact, Motor WNL, DTRs WNL, Strength WNL, Non Focal Psych-Normal Mood -Tender red R Labial area, Erythema R Medial Thigh, edema and induration of the right labia majora extending up onto the mons pubis Principal Diagnosis Vulvar cellulitis, right labia Discharge Exam General- oriented x 3, not in distress, speaks in sentences with no effort or accessory muscle use Eyes- anicteric Neck- no JVD Lungs- clear breath sounds bilaterally Heart- normal rate, regular rhythm; no murmurs Abdomen- normal bowel sounds, nondistended, soft, nontender Extremities- no pretibial edema, no calf tenderness Genitalia-very faint erythema over the right labia, mild edema, no drainage mons pubis essentially normal Neuro- alert, oriented x 3; no gross focal neurologic deficits Skin- warm & dry Discharge Data Allergies Allergy/AdvReac Type Severity Reaction Status Date / Time Sulfa (Sulfonamide Allergy Intermediate Unknown Verified 01/13/19 03:57 Antibiotics) Consultations 01/13/19 05:11 ED Decision to Admit Stat 01/13/19 06:10 Consult Gynecology Routine Consult Infectious Diseases Routine Ordered Studies 01/13/19 09:27 CT pelvis wo con Stat CT pelvis wo con CLINICAL HISTORY: 53 years-old Female presenting with Eval for labial, vulvar abscess. TECHNIQUE: Multidetector CT of the pelvis was performed without the use of intra venous contrast. IV contrast: None. One or more dose lowering techniques were used consistent with the principles of ALARA (as low as reasonably achievable), including automatic exposure control, mA or kV adjustment to individual patient size, and/or use of iterative reconstruction. COMPARISON: 01/11/2019. CT DOSE (mGy.cm): The estimated cumulative dose is 1045.41. FINDINGS: Skirt Panel Assembler topogram: Unremarkable. Bladder: Trace circumferential bladder wall thickening. Pelvic organs: Normal noncontrast appearance. The right labia again demonstrates diffuse infiltration of the subcutaneous fat with associated skin thickening. Inflammatory change extends to the periclitoral region and mons. There is an overall similar degree of the extent of inflammatory change, which also tracks along the distal portions of the inguinal canals, right greater than left. No evidence of a rim-enhancing fluid collection to suggest abscess. No soft tissue emphysema. No involvement of surrounding musculature. Bowel: Normal appendix. No bowel obstruction. Peritoneal cavity: Trace free fluid in the pelvis, likely physiologic no free intraperitoneal gas.. Lymph nodes: Several prominent inguinal lymph nodes, right greater than left, likely reactive. Vasculature: Normal noncontrast appearance. Abdominal wall: Normal. Musculoskeletal: Normal. IMPRESSION: No significant change in the extent or severity of inflammatory change centered at the right labia and extending into the periclitoral, mons, and right inguinal regions. No evidence of abscess. No soft tissue emphysema to suggest a gangrenous infection. Electronically signed by: Ruddy Juarez M.D. 01/13/2019 10:04 AM Hospital Course (1) Cellulitis of labia: Wound cultures dated January 11, 2019: Positive for staph aureus, MRSA Blood cultures collected January 13, 2019: Negative so far Repeat CAT scan of the pelvis: no abscess ELEMENT WINDING MACHINE TENDER service and infectious disease service consulted No drainable abscess at this time per [employer] Specialist SVC Improved daily, vancomycin IV received x4 days Infectious disease service consulted, recommend clindamycin 300 mg 3 times daily x2 weeks Follow-up with PCP this week Will up with ELEMENT WINDING MACHINE TENDER service in 1 week Follow-up with ID in 2 weeks plan discussed in detail with patient she is understanding, agreeable and comfortable with the plan of care Total Time Total Time Spent Total Time Spent (In Minutes): 40 minutes Discharge Plan Discharge Items Patient Disposition: Home - Self-Care Reason For Visit: LABIAL ABSCESS Discharge Diagnosis: VULVAR CELLULITIS Discharge Goals: Diagnostic testing and Therapeutic intervention Activity: Resume your previous activity Exercise/Sports: Wait until after follow-up appointment Driving/Machine Use Comment: NO DRIVING UNTIL RE-EVALUATED BY PRIMARY CARE PHYSICIAN Non-emergency contact: Primary Care Provider, Specialist and Buttonhole Facer Call non-emergency contact if: you have any medication questions, your symptoms worsen, your pain is not controlled, your pain is worsening, your pain is unusual for you, you have a fever, your wound has increased redness, your wound has increased drainage and your wound pain has increased Follow-up/Referrals: Bay Alvarado MD [Primary Care Provider] - Diet: Heart Healthy Addtl Provider Instructions: PLEASE COMPLETE COURSE OF LINEZOLID- ANTIBIOTIC. TAKE PROBIOTICS DAILY WHILE ON ANTIBIOTIC COURSE AND AT LEAST 1 WEEK AFTER. STAY WELL HYDRATED. DAILY WOUND CARE. CALL PRIMARY CARE PHYSICIAN OR CREDIT HISTORIAN, OR RETURN TO THE ER IMMEDIATELY IF WITH WORSENING OF SYMPTOMS, SWELLING/REDNESS/PAIN/DISCHARGE ON THE AFFECTED AREAS, FEVER/CHILLS. Prescriptions: New cetirizine 10 mg Tablet 10 mg PO QAM 30 Days Qty: 30 RF: 0 albuterol sulfate [Ventolin HFA] 90 mcg/actuation Hfa Aerosol Inhaler 2 puff inhalation Q6H PRN (Reason: shortness of breath or wheezing) 30 Days Qty: 1 RF: 0 ranitidine HCl 150 mg Tablet 150 mg PO BID 30 Days Qty: 60 RF: 0 oxybutynin chloride 5 mg Tablet Extended Release 24hr 5 mg PO QAM 30 Days Qty: 30 RF: 0 gabapentin 300 mg Capsule 300 mg PO HS 30 Days Qty: 30 RF: 0 fluoxetine 20 mg Capsule 40 mg PO QAM 30 Days Qty: 60 RF: 0 fluticasone propionate 50 mcg/actuation [place],Suspension 2 spry NA DAILY 30 Days Qty: 1 RF: 0 clindamycin HCl 300 mg capsule 300 mg PO TID 14 Days Qty: 42 RF: 0 Continued oxycodone 5 mg tablet 5 mg PO Q4H PRN (Reason: pain) Qty: 15 RF: 0 Discontinued cephalexin [Keflex] 500 mg capsule 500 mg PO QID 7 Days Qty: 28 RF: 0 Stand-Alone Forms: My [facility], Work/School Release (Inpt) Krames/Other Patient Handouts: Infec Wound Recognize Tx, Cellulitis Dc Discharge Orders: Discharge Order (Routine); Ordered 01/16/19 Ordered By: Chadd Calix Admission Data Admit Date/Time: 01/14/19 07:21 Attending Provider: Chadd Calix Admit Provider: Bry Tamez Primary Care Provider: Bay Alvarado Other Providers: Roberth Bingham ; Patti Peraza ; Bry Tamez Service: Surgical Services Other Interventions: Discharge Summary Assessment (RN) Last Done: 01/16/19 14:12 DC Date/Time DO NOT enter until pt leaves facility: 01/16/19 14:50
[2019-01-17] MEDS ORDERED: VANCOMYCIN TROUGH ONE (01:30)
== END 2019-01-16 14:50 | disposition home or self-care (01) | DRG 759 ==
LOC: ED 03:51 → 3N 03:51